=== PATIENT | female | born 1960 | race Caucasian/White ===

== ENCOUNTER 2020-09-30 14:41 | Emergency (ER) | payer MEDICARE, OTHER ==
[~2020-09-30 14:41] MED LIST: ATARAX25 MG PO; BUSPAR5 MG PO; MOBIC7.5 MG PO; MYLICON80 MG PO; NEURONTIN300 MG PO; PERCOCET 5-3251 EACH PO; PERCOCET 5/3251 TAB PO; PHENERGAN12.5 M1 PO; PROTONIX 40MG T40 MG PO; TRANSDERM-SCOP1 EACH AD; VOLTAREN **OUT75 MG PO; XARELTO10 MG PO
[2020-09-30 16:20] LABS: BASOPHIL 0.8 % (0-2); BILIRUBIN NEGATIVE (NEGATIVE); BLOOD NEGATIVE Ery/uL (NEGATIVE); CLARITY HAZY (CLEAR); COLOR YELLOW (YELLOW); GLUCOSE (U) NORMAL (NORMAL); HCT 39.8 % (37.0-47.0); HGB 13.2 g/dl (12.5-16.0); LEUKOCYTES NEGATIVE Leu/uL (NEGATIVE); MCH 30.1 pg (25.0-31.0); MCHC 33.2 g/dL (32.0-36.0); MCV 90.9 fL (78.0-100.0); MONOCYTE 6.5 % (0-12); MPV 10.1 fL (6.0-9.5); NEUTROPHIL 54.4 % (41-80); NITRITE NEGATIVE (NEGATIVE); NRBC 0; PLT 328 K/uL (150-400); PROTEIN TRACE (LOW) mg/dL (NEGATIVE); RBC 4.38 M/uL (4.20-5.40); RDW 12.7 % (11.5-14.0); UROBILINOGEN 0.2 mg/dL (0.2-1.0); WBC 9.1 K/uL (4.0-10.5)
[2020-09-30 16:25] LABS: URINARY RBC RARE; URINARY WBC RARE
[2020-09-30 16:37] LABS: ALBUMIN 3.7 g/dL (3.4-5.0); BILIRUBIN - TOTAL 0.5 mg/dL (0.2-1.0); BUN/CREAT RATIO (CALC) 17.7 RATIO; CREATININE 1.3 mg/dL (0.51-0.95); GLOBULIN (CALCULATION) 4.2 g/dL; POTASSIUM 4.5 mmol/L (3.5-5.1); TOTAL PROTEIN 7.9 g/dL (6.4-8.2)
== END 2020-09-30 17:00 | disposition left against medical advice (07) ==
LOC: FER 14:41
PROVIDERS: Emergency Medicine
DX: R10.11 Right upper quadrant pain (principal); R11.10 Vomiting, unspecified; I10 Essential (primary) hypertension; E66.9 Obesity, unspecified; F17.210 Nicotine dependence, cigarettes, uncomplicated; Z88.0 Allergy status to penicillin; Z88.8 Allergy status to other drugs, medicaments and biological substances; Z98.890 Other specified postprocedural states; Z53.8 Procedure and treatment not carried out for other reasons
CPT/HCPCS: 36415; 80053; 81001; 82150; 83690; 85025; 99284

== ENCOUNTER 2021-02-04 06:20 | Day surgery (SDC) | payer MEDICARE, OTHER ==
[~2021-02-04] VITALS: Ht 165 cm; Wt 99.0 kg
[~2021-02-04 06:20] MED LIST changes: +VENTOLIN HFA IN18 GM INH
[2021-02-04] MEDS ORDERED: ACETAMINOPHEN-1 EAC1 PO (06:44)
[2021-02-05 06:29] LABS: BASOPHIL 0.4 % (0-2); EOSINOPHIL 0.8 % (0-5); HCT 35.2 % (37.0-47.0); HGB 11.3 g/dl (12.5-16.0); LYMPHOCYTE 19.3 % (15-48); MCH 29.5 pg (25.0-31.0); MCHC 32.1 g/dL (32.0-36.0); MCV 91.9 fL (78.0-100.0); MPV 10.3 fL (6.0-9.5); NEUTROPHIL 70.9 % (41-80); NRBC 0; PLT 254 K/uL (150-400); RBC 3.83 M/uL (4.20-5.40); RDW 13.2 % (11.5-14.0); WBC 13.8 K/uL (4.0-10.5)
[2021-02-05 07:05] LABS: BUN/CREAT RATIO (CALC) 11.6 RATIO; CREATININE 1.29 mg/dL (0.51-0.95); POTASSIUM 4.1 mmol/L (3.5-5.1)
[2021-02-05] MEDS ORDERED: CHILDREN'S ASPI81 MG PO (08:50)
[2021-02-05] MEDS ORDERED: OXYCODONE-ACET1 EAC1 PO (08:50)
[2021-02-05] MEDS ORDERED: FEOSOL325 MG PO (08:50)
--- NOTE | 2021-02-05 11:08 | NUR ---
PT REQUESTED [facility] FOR PT. [facility] DELIVERED A [facility]ALK[facility]. PT WILL D/C HOME ON 02/05/21.
== END 2021-02-05 11:50 | disposition home health service (06) ==
LOC: FAS 06:20 → FMS 09:49 → FAS 10:00
PROVIDERS: Orthopaedic Surgery
DX: M25.861 Other specified joint disorders, right knee (principal); M76.891 Other specified enthesopathies of right lower limb, excluding foot; T84.022A Instability of internal right knee prosthesis, initial encounter; T84.84XA Pain due to internal orthopedic prosthetic devices, implants and grafts, initial encounter; K31.84 Gastroparesis; M19.90 Unspecified osteoarthritis, unspecified site; L40.9 Psoriasis, unspecified; F17.210 Nicotine dependence, cigarettes, uncomplicated; I10 Essential (primary) hypertension; E78.5 Hyperlipidemia, unspecified; G47.00 Insomnia, unspecified; F41.9 Anxiety disorder, unspecified; F31.9 Bipolar disorder, unspecified; Z79.899 Other long term (current) drug therapy; Z88.0 Allergy status to penicillin; Z88.5 Allergy status to narcotic agent; Z91.041 Radiographic dye allergy status; Y79.1 Therapeutic (nonsurgical) and rehabilitative orthopedic devices associated with adverse incidents
CPT/HCPCS: 36415; 73560; 80048; 85025; 86850; 86900; 86901; 94010; 94762; 97110; 97162; 97166; 97530-GP; 97535; C1776; J0171; J1100; J1170; J1200; J2250; J2405; J2704; J2795; J3010; J7120

== ENCOUNTER 2021-04-30 20:51 | Emergency (ER) | payer MEDICARE, OTHER ==
[~2021-04-30 20:51] MED LIST changes: +ACETAMINOPHEN-1 EAC1 PO; +CHILDREN'S ASPI81 MG PO; +FEOSOL325 MG PO; +OXYCODONE-ACET1 EAC1 PO
== END 2021-05-01 01:30 | disposition home or self-care (01) ==
LOC: FER 20:51
DX: M25.561 Pain in right knee (principal); Z88.0 Allergy status to penicillin; Z88.5 Allergy status to narcotic agent; Z91.041 Radiographic dye allergy status; W19.XXXA Unspecified fall, initial encounter; Y92.009 Unspecified place in unspecified non-institutional (private) residence as the place of occurrence of the external cause
CPT/HCPCS: 73700